=== PATIENT | female | born 1965 | race Caucasian/White ===

== ENCOUNTER 2019-03-09 02:09 | Observation (INO) ==
[2019-03-09 03:04] LABS: Apearance,Urine Slightly Hazy (Clear); Bacteria,Urine Occasional /HPF (Few); Bilirubin,Urine Negative (Negative); Blood, Urine Negative (Negative); Glucose,Urine (UA) Negative (Negative); Ketones,Urine Negative (Negative); Mucus,Urine Occasional /LPF (Occasional); Nitrite,Urine Negative (Negative); Protein,Urine Negative; RBC,Urine 2 /HPF (0-4); Squamous Epithelial Cell,Urine Few /HPF (0-10); Urine Color Yellow (Yellow); Urine Specific Gravity 1.018 (1.001-1.035); Urine Urobilinogen < 2.0 EU/DL (0.2-1.0); WBC,Urine 12 /HPF (0-6)
[2019-03-09 03:06] LABS: Basophils # 0.1 10*3/uL (0.0-0.2); Basophils % 0.5 % (0.0-0.8); Eosinophils # 0.3 10*3/uL (0.0-0.87); Eosinophils % 2.6 % (0.00-10.9); Hematocrit 42.5 VOL% (35.7-47.0); Hemoglobin 14.4 GM/DL (12.0-16.0); Immature Granulocytes % 0.6 %; Immature Granulocytes Absolute 0.07 #; Lymphocytes % 17.8 % (21.3-54.2); Mean Corpuscular HGB Conc 33.9 GM/DL (32-36); Mean Corpuscular Volume 98.8 FL (87-102); Mean Platelet Volume 10.4 FL (9.6-12.0); Monocytes % 6.5 % (1.7-12.7); Platelet Count 233 T/CUMM (130-400); Red Cell Distribution Width 14.5 % (9.3-17.3); White Blood Count 11.4 T/CUMM (4-12)
[2019-03-09 03:08] LABS: Barbiturates Screen,Urine Negative (Negative); Benzodiazepines Screen,Urine Negative (Negative); Cannabinoid Screen,Urine Negative (Negative); Opiate Screen,Urine Negative (Negative); Phencyclidine Screen,Urine Negative (Negative)
[2019-03-09 03:15] LABS: Alanine Aminotransferase 34 U/L (13-56); Albumin 3.9 G/DL (3.4-5.0); Alkaline Phosphatase 74 U/L (45-117); Aspartate Amino Transferase 29 U/L (0-37); Bilirubin,Total < 0.39 MG/DL (0.2-1.0); Blood Urea Nitrogen 10 MG/DL (7-18); Calcium 9.7 MG/DL (8.5-10.1); Glucose 112 MG/DL (74-106); Osmolality,Calculated 274.7 MOS/KG (273-304); Total Protein 7.8 G/DL (6.4-8.3)
[2019-03-09] MEDS ORDERED: ACETAMINOPHEN 325 MG TABLET PO PRN (04:34)
[2019-03-09] MEDS ORDERED: LORazepam 2 MG/1 ML VIAL IV PRN (04:41)
[2019-03-09] MEDS ORDERED: ASENAPINE 5 MG SL SCH (09:00)
[2019-03-09] MEDS: IBUPROFEN 800 MG TABLET PO SCH ×3 (09:34→20:51)
[2019-03-09] MEDS: ENOXAPARIN 40 MG/0.4 ML SYRINGE SUBCUT SCH (09:35)
[2019-03-09] MEDS: METHOCARBAMOL 750 MG TABLET PO SCH ×3 (09:35→20:51)
[2019-03-09] MEDS: MULTIVITAMIN (CENTRUM) TABLET PO SCH (09:35)
[2019-03-09] MEDS: FOLIC ACID 1 MG TABLET PO SCH (09:35)
[2019-03-09] MEDS: THIAMINE 100 MG TABLET PO SCH (09:35)
[2019-03-09] MEDS: GABAPENTIN 400 MG CAPSULE PO SCH ×3 (09:35→20:51)
[2019-03-09] MEDS: risperiDONE 1 MG TABLET PO SCH ×2 (09:35→20:51)
[2019-03-09] MEDS: levETIRAcetam 500 MG TABLET PO SCH ×2 (09:35→20:51)
[2019-03-09] MEDS ORDERED: NALOXONE 0.4 MG/ML VIAL IV ONE ×2 (13:20→13:24)
[2019-03-09] MEDS ORDERED: NALOXONE 0.4 MG/ML VIAL ONE (13:24)
[2019-03-09] MEDS ORDERED: SODIUM CHLORIDE 0.9% 500 ML IV ONE (13:32)
[2019-03-09 13:54] LABS: Barbiturates Screen,Urine Negative (Negative); Benzodiazepines Screen,Urine Negative (Negative); Cannabinoid Screen,Urine Negative (Negative); Opiate Screen,Urine Positive (Negative); Phencyclidine Screen,Urine Negative (Negative)
[2019-03-09] MEDS ORDERED: traZODone 50 MG TABLET PO SCH (21:00)
[2019-03-10 08:09] VITALS: BP 129/85
[2019-03-10] MEDS: GABAPENTIN 400 MG CAPSULE PO SCH (08:54)
[2019-03-10] MEDS: ENOXAPARIN 40 MG/0.4 ML SYRINGE SUBCUT SCH (08:54)
[2019-03-10] MEDS: MULTIVITAMIN (CENTRUM) TABLET PO SCH (08:56)
[2019-03-10] MEDS: THIAMINE 100 MG TABLET PO SCH (08:56)
[2019-03-10] MEDS: FOLIC ACID 1 MG TABLET PO SCH (08:56)
[2019-03-10] MEDS: IBUPROFEN 800 MG TABLET PO SCH (08:56)
[2019-03-10] MEDS: levETIRAcetam 500 MG TABLET PO SCH (08:56)
[2019-03-10] MEDS: risperiDONE 1 MG TABLET PO SCH (08:56)
[2019-03-10] MEDS ORDERED: NICOTINE 21 MG/24 HR PATCH TRANSDERM SCH (09:00)
[2019-03-10] MEDS: METHOCARBAMOL 750 MG TABLET PO SCH (09:13)
== END 2019-03-10 12:38 | disposition home or self-care (01) ==
LOC: N.EDINP 02:09 → N.ED 02:09 → N.5E 04:54
PROVIDERS: ADMIT Hospitalist; ATTEND Hospitalist